=== PATIENT | female | born 1990 | race Two or more races ===

== ENCOUNTER 2018-09-22 16:34 | Emergency (ER) | payer MEDICAID ==
[~2018-09-22] VITALS: Ht 154.9 cm; Wt 68.2 kg
[2018-09-22 16:37] VITALS: BP 99/69
--- NOTE | 2018-09-22 17:00 | NUR ---
Patient named called in lobby and restrooms checked no answer on first call.
[2018-09-22 17:09] LABS: BASOPHILS % (AUTO) 1 % (0-1); EOSINOPHILS # (AUTO) 0.14 x10^3/uL (0-0.4); EOSINOPHILS % (AUTO) 2 % (1-7); LYMPHOCYTES # (AUTO) 2.92 x10^3/uL (1-3.4); LYMPHOCYTES % (AUTO) 31 % (22-44); MD NO; MEAN CORPUSCULAR HEMOGLOBIN 27.3 pg (27.0-34.8); MEAN CORPUSCULAR HGB CONC 33.3 g/dL (32.4-35.8); MEAN CORPUSCULAR VOLUME 82.1 fL (80-100); MEAN PLATELET VOLUME 8.6 fL (7.4-10.4); MONOCYTES # (AUTO) 0.57 x10^3/uL (0.2-0.8); MONOCYTES % (AUTO) 6 % (2-9); NEUTROPHILS # (AUTO) 5.57 x10^3/uL (1.8-6.8); NEUTROPHILS % (AUTO) 60 % (42-75); PLATELET COUNT 370 x10^3/uL (130-400); RED BLOOD COUNT 5.08 x10^6/uL (3.82-5.3); RED CELL DISTRIBUTION WIDTH 14.1 % (9.6-15.2)
--- NOTE | 2018-09-22 17:11 | NUR ---
Patient named called again in lobby with no answer on second call.
--- NOTE | 2018-09-22 17:15 | NUR ---
Patient not in lobby, lab, or restrooms, name called in lobby for third time with no answer
[2018-09-22 17:20] LABS: ALBUMIN 4.2 g/dL (3.4-5.0); ANION GAP 4 mmol/L (5-15); CALCIUM 8.9 mg/dL (8.5-10.1); CHLORIDE 106 mmol/L (98-107); CREATININE 0.78 mg/dL (0.55-1.02)
--- NOTE | 2018-09-22 17:43 | NUR ---
PT AMBULATED TO ROOM WITH EDT.
[2018-09-22 17:51] LABS: T4 (THYROXINE) 1.6 mcg/dL (4.8-13.9)
--- NOTE | 2018-09-22 18:04 | NUR ---
RAMA BECERRA, AT BEDSIDE TO EVALUATE PT. PT WITH NO COMPLAINT, JUST STATES THAT SHE IS ALMOST OUT OF HER LEVOTHYROXINE, JUST MOVED HER FROM [facility] AND NEEDS A REFERRAL FOR A PCP.
[2018-09-22] MEDS ORDERED: LEVO100T5 PO (19:46)
== END 2018-09-22 18:52 | disposition home or self-care (01) ==
LOC: ED 17:34
DX: E03.9 Hypothyroidism, unspecified (principal); Z76.0 Encounter for issue of repeat prescription
CPT/HCPCS: 36415; 80048; 82040; 84436; 84443; 85025; 99283

== ENCOUNTER 2019-07-01 14:54 | Emergency (ER) | payer MEDICAID ==
[~2019-07-01] VITALS: Ht 154.9 cm; Wt 65.9 kg
[~2019-07-01 14:54] MED LIST: LEVO100T5 PO
[2019-07-01 14:57] VITALS: BP 122/73
== END 2019-07-01 16:38 | disposition home or self-care (01) ==
LOC: ED 16:32
DX: E03.9 Hypothyroidism, unspecified (principal); Z76.0 Encounter for issue of repeat prescription
CPT/HCPCS: 99283

== ENCOUNTER 2019-11-22 08:11 | Emergency (ER) | payer MEDICAID ==
[~2019-11-22] VITALS: Ht 154.9 cm; Wt 66.3 kg
[2019-11-22 08:19] VITALS: BP 122/81
--- NOTE | 2019-11-22 08:25 | NUR ---
PT AMB TO ROOM 4 WITH STEADY GAIT.
[2019-11-22] MEDS ORDERED: LEVO125T5 PO (08:30)
[2019-11-22] MEDS ORDERED: ERGO500017 PO (08:30)
--- NOTE | 2019-11-22 08:30 | NUR ---
PT TO ED FOR REFILL OF LEVOTHYROXINE 125MCG DAILY AND VITAMIN D2 50,000 EVERY WEEK. AWAITIG EDMD ASSESSMENT.
== END 2019-11-22 09:12 | disposition home or self-care (01) ==
LOC: ED 08:38
DX: E03.9 Hypothyroidism, unspecified (principal); Z76.0 Encounter for issue of repeat prescription
CPT/HCPCS: 99281

== ENCOUNTER 2020-02-17 14:54 | Emergency (ER) | payer MEDICAID ==
[~2020-02-17] VITALS: Ht 154.9 cm; Wt 64.1 kg
[~2020-02-17 14:54] MED LIST changes: +ERGO500017 PO; +LEVO125T5 PO
[2020-02-17 14:57] VITALS: BP 134/97
== END 2020-02-17 16:58 | disposition home or self-care (01) ==
LOC: ED 16:30
DX: S40.022A Contusion of left upper arm, initial encounter (principal); Y04.8XXA Assault by other bodily force, initial encounter; Y93.89 Activity, other specified; Y92.098 Other place in other non-institutional residence as the place of occurrence of the external cause; Y99.8 Other external cause status
CPT/HCPCS: 99283